=== PATIENT | male | born 1955 | race Caucasian/White ===

== ENCOUNTER 2017-11-28 21:33 | Emergency (ER) | payer OTHER ==
[2017-11-28] MEDS ORDERED: NS 500 ML IV ONE (21:46)
--- NOTE | 2017-11-28 22:00 | CPEKG ---
Heart Rate: 79 RR Interval: 759 P-R Interval: 140 QRSD Interval: 98 QT Interval: 392 QTC Interval: 450 P [place]: 47 QRS [place]: -1 T Wave [place]: 23 EKG Severity - NORMAL ECG - EKG Impression: SINUS RHYTHM Electronically Signed By: Zeus Ramirez 29-Nov-2017 06:55:31
[2017-11-28] MEDS ORDERED: IOPAMIDOL (ISOVUE 370) 100 ML BTL IV ONE ×2 (22:02→22:44)
[2017-11-28 22:04] LABS: PLATELET COUNT 212 10^3/uL (150-400)
--- NOTE | 2017-11-28 22:04 | EDPHY ---
H & P Stated Complaint: PAINFUL BREATHING/DX W/ PNA TODAY PCP SENT HERE FOR R/O PE Time Seen by Provider: 11/28/17 22:04 HPI/ROS: HPI CHIEF COMPLAINT: Painful breathing. Rule out pulmonary embolism. HISTORY OF PRESENT ILLNESS: 62-year-old male, presents emergency room with right-sided pleuritic pain. He he was seen by his primary care doctor today and had a D-dimer performed and was told was elevated was sent to the emergency room to rule out pulmonary embolism. The patient was recently diagnosed today with pneumonia however he has been on Z-Tre for the past 4 days. He was initially seen in the emergency room for sore throat and fever a few days ago and started on Z-Tre. He followed up his primary care doctor they performed chest x-ray was told he has pneumonia. However sent here to rule out pulmonary embolism. Patient otherwise feels fine however he states he has right-sided pleuritic pain when he breathes in right posterior scapula pain sharp stabbing with deep inspiration. Also has pain when he coughs. No hemoptysis. Patient denies any significant history of PE or DVT or pulmonary embolism risk factors. Denies any chest pain. No chest pressure. Denies profound shortness of breath. Past Medical History: Hypertension Past Surgical History: Denies recent surgery Social History: Denies drugs alcohol tobacco. 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 Exam Constitutional nontoxic appearing triage nursing summary reviewed, vital signs reviewed, awake/alert. Eyes normal conjunctivae and sclera, EOMI, PERRLA. HENT normal inspection, atraumatic, moist mucus membranes, no epistaxis, neck supple/ no meningismus, no raccoon eyes. Respiratory clear to auscultation bilaterally, normal breath sounds, no respiratory distress, no wheezing. Cardiovascular rate normal, regular rhythm, no murmur, no edema, distal pulses normal. Gastrointestinal soft, non-tender, no rebound, no guarding, normal bowel sounds, no distension, no pulsatile mass. Genitourinary no CVA tenderness. Musculoskeletal no midline vertebral tenderness, full range of motion, no calf swelling, no tenderness of extremities, no meningismus, good pulses, neurovascularly intact. Skin pink, warm, & dry, no rash, skin atraumatic. Neurologic awake, alert and oriented x 3, AAOx3, moves all 4 extremities equally, motor intact, sensory intact, CN II-XII intact, normal cerebellar, normal vision, normal speech. Psychiatric normal mood/affect. Heme/Lymph/Immune no lymphadenopathy. Differential diagnosis includes but is not limited to: Rule out pulmonary embolism, ACS, atypical chest pain, pneumothorax, pneumonia, pulmonary embolism , aortic dissection, congestive heart failure, tumor, musculoskeletal pain, esophageal pain, GERD, peptic ulcer disease, pancreatitis Medical Decision Making: Plan for this patient IV establishment IV fluid bolus , check basic blood work, CT angiogram chest rule out pulmonary embolism. Re-evaluation: EKG interpretation by me on record in [facility] system. Impression time of EKG 2150, sinus rhythm rate of 79 no signs of acute ischemia no ST elevation no ST depression no significant T-wave abnormalities. No signs of cardiac arrhythmia. CT angiogram of the chest for PE: This shows no evidence of PE however does show pneumonia right-sided. Multi lobe. In emergency room the patient appears well nontoxic no hypoxia no acute distress. Blood work has been reviewed mild leukocytosis. CT scan shows no evidence of PE but does show multifocal pneumonia. However the patient is clinically stable no hypoxia no fever I will allowed to go home. Follow up with his primary care doctor. Additionally return precautions discussed he understands return emergency room if he has worsening symptoms questions or concerns. Follow up with his PCP. Source: Patient - Personal History Current Tetanus Diphtheria and Acellular Pertussis (TDAP): Yes - Medical/Surgical History Hx Asthma: Yes Hx Chronic Respiratory Disease: No Hx Diabetes: No Hx Cardiac Disease: No Hx Renal Disease: No Hx Cirrhosis: No Hx Alcoholism: No Hx HIV/AIDS: No Hx Splenectomy or Spleen Trauma: No Other PMH: HTN. anxiety. ASTHMA - Social History Smoking Status: Former smoker Constitutional: Initial Vital Signs Temperature (C) 36.4 C 11/28/17 21:36 Heart Rate 94 11/28/17 21:36 Respiratory Rate 16 11/28/17 21:36 Blood Pressure 144/87 H 11/28/17 21:36 O2 Sat (%) 94 11/28/17 21:36 O2 Delivery Mode Nasal Cannula O2 (L/minute) 2 Allergies/Adverse Reactions: Penicillins Allergy (Intermediate, Verified 11/24/17 17:29) Hives bee venom protein (honey bee) Allergy (Verified 11/28/17 21:40) Home Medications: Medication Instructions Recorded ALPRAZolam [Xanax 1 MG (*)] 11/24/17 Azithromycin [Zithromax] 250 mg PO DAILY #6 tab 11/24/17 Escitalopram Oxalate [Lexapro] 10 mg PO 11/24/17 Hydrochlorothiazide [HCTZ (*)] 25 mg PO DAILY 11/24/17 Medical Decision Making - Diagnostics Imaging Results: Imaging Impressions Chest/Thorax CTA 11/28/17 21:46 Impression: 1. No acute pulmonary embolus. 2. Multifocal pneumonia affecting the right middle and upper lobes. Small amount of dependent consolidation in the right lower lobe may represent atelectasis or pneumonia. 3. Mediastinal and hilar adenopathy, likely reactive. Findings and recommendations discussed with Zeus Marino MD at 2317 hour, . - Data Points Laboratory Results: Laboratory Results 11/28/17 21:58 11/28/17 21:58 11/28/17 11/28/17 11/28/17 21:58 21:58 21:58 WBC 14.57 10^3/uL H 10^3/uL (3.80-9.50) RBC 3.43 10^6/uL L 10^6/uL (4.40-6.38) Hgb 11.2 g/dL L g/dL (13.7-17.5) Hct 31.6 % L % (40.0-51.0) MCV 92.1 fL fL (81.5-99.8) MCH 32.7 pg pg (27.9-34.1) MCHC 35.4 g/dL g/dL (32.4-36.7) RDW 13.1 % % (11.5-15.2) Plt Count 212 10^3/uL 10^3/uL (150-400) MPV 9.7 fL fL (8.7-11.7) Neut % (Auto) Not Reported Lymph % (Auto) Not Reported [place] % (Auto) Not Reported Eos % (Auto) Not Reported Baso % (Auto) Not Reported Nucleat RBC Rel Count Not Reported Absolute Neuts (auto) Not Reported Absolute Lymphs (auto) Not Reported Absolute Monos (auto) Not Reported Absolute Eos (auto) Not Reported Absolute Basos (auto) Not Reported Absolute Nucleated RBC Not Reported Immature Gran % Not Reported Seg Neutrophils % 66.0 % % Band Neutrophils % 6.0 % % Lymphocytes % 11.0 % % Monocytes % 15.0 % % Eosinophils % 1.0 % % Basophils % 0 % % Metamyelocytes % 1.0 % % Myelocytes % 0 % % Promyelocytes % 0 % % Blast Cells % 0 % % Immature Gran # Not Reported Absolute Seg Neuts 9.62 10^/uL H 10^/uL (1.70-6.50) Absolute Band Neuts 0.87 10^3/uL H 10^3/uL (0.00-0.70) Absolute Lymphocytes 1.60 10^3/uL 10^3/uL (1.00-3.00) Absolute Monocytes 2.19 10^3/uL H 10^3/uL (0.30-0.80) Absolute Eosinophils 0.15 10^3/uL 10^3/uL (0.03-0.40) Absolute Basophils 0.00 10^3/uL L 10^3/uL (0.02-0.10) Absolute Metamyelocyte 0.15 10^3/mL H 10^3/mL (0.00-0.00) Absolute Myelocytes 0.00 10^3/mL 10^3/mL (0.00-0.00) Absolute Promyelocytes 0.00 10^3/uL 10^3/uL (0.00-0.00) Absolute Plasma Cells 0.00 10^3/uL 10^3/uL (0.00-0.00) Nucleated RBCs 0 /100 WBC /100 WBC (0-0) RBC/WBC/PLT Morphology NORMAL (NORMAL) Absolute Blast Cells 0.00 10^3/uL 10^3/uL (0.00-0.00) Plasma Cells % 0 % % Platelet Estimate ADEQUATE (ADEQ) Smear Review By Pending PT 14.7 SEC SEC (12.0-15.0) INR 1.13 (0.83-1.16) APTT 25.7 SEC SEC (23.0-38.0) Sodium 134 mEq/L L mEq/L (135-145) Potassium 3.4 mEq/L mEq/L (3.3-5.0) Chloride 98 mEq/L mEq/L (97-110) Carbon Dioxide 24 mEq/l mEq/l (22-31) Anion Gap 12 mEq/L mEq/L (8-16) BUN 13 mg/dL mg/dL (7-23) Creatinine 0.9 mg/dL mg/dL (0.7-1.3) Estimated GFR > 60 Glucose 111 mg/dL H mg/dL (70-100) Calcium 8.6 mg/dL mg/dL (8.5-10.4) POC Troponin I NT-Pro-B Natriuret Pep 220 pg/mL H pg/mL (0-125) 11/28/17 21:54 WBC RBC Hgb Hct MCV MCH MCHC RDW Plt Count MPV Neut % (Auto) Lymph % (Auto) [place] % (Auto) Eos % (Auto) Baso % (Auto) Nucleat RBC Rel Count Absolute Neuts (auto) Absolute Lymphs (auto) Absolute Monos (auto) Absolute Eos (auto) Absolute Basos (auto) Absolute Nucleated RBC Immature Gran % Seg Neutrophils % Band Neutrophils % Lymphocytes % Monocytes % Eosinophils % Basophils % Metamyelocytes % Myelocytes % Promyelocytes % Blast Cells % Immature Gran # Absolute Seg Neuts Absolute Band Neuts Absolute Lymphocytes Absolute Monocytes Absolute Eosinophils Absolute Basophils Absolute Metamyelocyte Absolute Myelocytes Absolute Promyelocytes Absolute Plasma Cells Nucleated RBCs RBC/WBC/PLT Morphology Absolute Blast Cells Plasma Cells % Platelet Estimate Smear Review By PT INR APTT Sodium Potassium Chloride Carbon Dioxide Anion Gap BUN Creatinine Estimated GFR Glucose Calcium POC Troponin I 0.05 ng/mL ng/mL (0.00-0.08) NT-Pro-B Natriuret Pep Medications Given: Discontinued Medications Sodium Chloride (Ns) 500 mls @ 1,000 mls/hr IV EDNOW ONE PRN Reason: Protocol Stop: 11/28/17 22:15 Last Admin: 11/28/17 21:59 Dose: 500 mls Sodium Chloride (Ns) 1,000 mls @ 0 mls/hr IV ONCE ONE PRN Reason: Wide Open Stop: 11/28/17 22:48 Last Admin: 11/28/17 23:08 Dose: 1,000 mls Point of Care Test Results: Chemistry 11/28/17 21:54 POC Troponin I 0.05 ng/mL ng/mL (0.00-0.08) Departure - Departure Disposition: Home, Routine, Self-Care Clinical Impression: Pneumonia Qualifiers: Pneumonia type: due to unspecified organism Laterality: right Lung location: unspecified part of lung Qualified Code(s): J18.9 - Pneumonia, unspecified organism Condition: Good Instructions: Pneumonia (ED) Additional Instructions: 1. Follow up with your primary care doctor 2. Return to the emergency room if you have worsening symptoms includes worsening shortness of breath, fever, vomiting or not feeling well. Referrals: RANI FINK [Primary Care Provider] - As per Instructions
[2017-11-28 22:11] LABS: INR 1.13 (0.83-1.16); PROTIME(PATIENT) 14.7 SEC (12.0-15.0)
[2017-11-28] MEDS ORDERED: NS 1,000 ML IV ONE (22:47)
[2017-11-29] MEDS ORDERED: HYDROCOD/APAP 5/325 PREPACK#6 BTL TAKEHOME ONE (00:09)
[2017-11-29 03:08] VITALS: BP 125/79
== END 2017-11-29 00:22 | disposition home or self-care (01) ==
DX: J18.9 Pneumonia, unspecified organism (principal); E86.9 Volume depletion, unspecified; J45.909 Unspecified asthma, uncomplicated; Z87.891 Personal history of nicotine dependence
CPT/HCPCS: 84484-PO; Q9967